=== PATIENT | male | born 1955 | race Caucasian/White ===

== ENCOUNTER → 2021-08-08 14:43 | Outpatient (CLI) | payer OTHER, SELFPAY ==
--- NOTE | ~2021-08-08 | XR_ITS ---
XR lumbar spine 2-3V DATE: 08/08/2021 15:33 INDICATION: Low back pain TECHNIQUE: AP, lateral, coned lateral lumbosacral views COMPARISON: 01/21/2016 lumbar spine FINDINGS: There is moderate degenerative disease throughout the lumbar and lumbosacral spine. No frac ture or bone destruction or spondylolisthesis. The included lower thoracic and lumbar pedicles are in tact. The sacroiliac joints are intact. IMPRESSION: Multilevel moderate degenerative disc disease Reviewed, dictated and finalized at location A. F OCCUPATIONAL THERAPIST
--- NOTE | ~2021-08-08 | XR_ITS ---
XR hip RT min 2V DATE: 08/08/2021 15:20 INDICATION: Right hip pain TECHNIQUE: AP and lateral views COMPARISON: None FINDINGS: There is severe right hip joint space narrowing and prominent spurring, consistent with sev ere right hip osteoarthritis. No fracture or dislocation, avascular necrosis or bone destruction is detected. Normal alignment at the pubic symphysis and right sacroiliac joint. IMPRESSION: Severe right hip osteoarthritis Reviewed, dictated and finalized at location A. ERMAN
== END ==
PROVIDERS: Visit Provider Nurse Practitioner Family
DX: M51.36 Other intervertebral disc degeneration, lumbar region (principal); M16.11 Unilateral primary osteoarthritis, right hip
CPT/HCPCS: 72100; 73502

== ENCOUNTER → 2021-10-03 06:55 | Outpatient (CLI) | payer OTHER, SELFPAY ==
--- NOTE | ~2021-10-03 | MR_ITS ---
EXAMINATION: MR lumbar spine wo con DATE: 10/03/2021 07:36 INDICATION: Severe low back pain TECHNIQUE: Magnetic resonance imaging (MRI) of the lumbar spine was performed without intravenous con trast. Sequences included sagittal T2-weighted FSE, sagittal T2-weighted FS FSE, sagittal T1-weighted FSE, and axial T2-weighted FSE. COMPARISON: Lumbar spine radiographs dated 08/08/2021 FINDINGS: Alignment is normal. Vertebral body heights are normal. Small Schmorl's node along the superior endpl ate of L1 along the inferior endplates of T10 and T11. Normal marrow signal. Mild disc height loss a t T10-T11 through T12-L1 and at L3-L4 through L5-S1. There are annular fissures posteriorly at L5-S1 and anteriorly at L2-L3 through L4-L5. The conus medullaris terminates at L1-L2. There is normal sign al in the caudal spinal cord. Paravertebral soft tissues are unremarkable. The following disc levels are specifically discussed: T12-L1: Disc is bulging. There is minimal bilateral facet joint osteoarthritis. There is no neural fo raminal stenosis. There is mild central canal stenosis. L1-L2: Disc is bulging. There is mild right and mild to moderate left facet joint osteoarthritis. The re is no neural foraminal stenosis. There is mild central canal stenosis. L2-L3: Disc is bulging. There is hypertrophy of the ligamentum flavum. There is moderate right and mi ld left facet joint osteoarthritis. There is mild bilateral neural foraminal stenosis. There is mild central canal stenosis. L3-L4: Disc is bulging. There is moderate bilateral facet joint osteoarthritis. There is mild bilater al neural foraminal stenosis. There is mild central canal stenosis. L4-L5: Disc is bulging. There is hypertrophy of the ligamentum flavum. There is moderate bilateral fa cet joint osteoarthritis. There is moderate bilateral neural foraminal stenosis. There is mild centra l canal stenosis. L5-S1: Disc is bulging. There is moderate left and severe right facet joint osteoarthritis. There is moderate bilateral neural foraminal stenosis. There is no central canal stenosis. IMPRESSION: 1. Mild to moderate lumbar spondylosis. Reviewed, dictated and finalized at location B.
== END ==
PROVIDERS: PCP Orthopaedic Surgery; Visit Provider Orthopaedic Surgery
DX: M47.896 Other spondylosis, lumbar region (principal)
CPT/HCPCS: 72148

== ENCOUNTER 2022-11-05 17:50 | Emergency (ER) | payer MEDICARE, SELFPAY ==
--- NOTE | 2022-11-05 18:17 | ED.WOUNDLAC ---
HPI - Wound/Laceration General Chief Complaint: Wound/Laceration Stated Complaint: laceration Time Seen by Provider: 11/05/22 18:19 Source: patient Mode of arrival: ambulatory Limitations: no limitations History of Present Illness HPI narrative: 67-year-old male presented for complaint of 2 lacerations to the left hand after injury about 4 hours prior to arrival. He states he reached to grab a cathleen tape measure and the edges cut his hand. Reports laceration to left little finger and thumb. Bleeding has stopped. Unsure of last tetanus. Patient voices concern about infection to the sites, as he has hx right hip replacement and does not want any infection. patient cleansed wounds with hydrogen peroxide and applied neosporin with a bandaid. Denies numbness, tingling, weakness or decreased range of motion to the hand or fingers. Related Data Home Medications Medication Instructions Recorded Confirmed celecoxib 200 mg capsule mg 11/05/22 ergocalciferol (vitamin D2) 1,250 11/05/22 mcg (50,000 unit) capsule (Vitamin D2) Allergies Allergy/AdvReac Type Severity Reaction Status Date / Time No Known Allergies Allergy Mild Verified 11/05/22 17:55 Review of Systems Review of Systems: CONSTITUTIONAL: Denies body aches, fever, chills, or sweats. EYES: Denies visual changes, redness, or discharge. ENT: Denies rhinorrhea, congestion CARDIOVASCULAR: Denies chest pain, palpitations, or edema. RESPIRATORY: Denies cough or dyspnea. GASTROINTESTINAL: Denies abdominal pain, nausea, vomiting, or diarrhea. SKIN: per hPI MUSCULOSKELETAL: Denies back pain, joint pain, or myalgia. NEUROLOGIC: Denies headache, numbness, tingling, or weakness. [facility] Past Medical History Medical History (Updated 11/05/22 @ 18:32 by Janny Coyle APRN) Arthritis Surgical History Surgical History (Updated 11/05/22 @ 18:32 by Janny Coyle APRN) History of total hip replacement Social History Social History (Updated 11/05/22 @ 18:32 by Janny Coyle APRN) Smoking status: Former smoker Comments At time of signature, I have reviewed and agree with nursing past medical, surgical, social and family history unless otherwise noted. Please see nursing chart for further information. There is no relevant family history pertinent to the presenting complaint Exam Narrative: GENERAL: Well-appearing HEAD: Normocephalic, atraumatic. EYES: conjunctivae clear, and EOMI. ENT: Mucous membranes moist. Oropharynx without edema, erythema or lesions. NECK: Supple. No lymphadenopathy CHEST: Clear to auscultation. HEART: Regular rate and rhythm. SKIN: Warm, dry. 1 cm linear laceration to the left 5th digit proximal phalanx, no active bleeding; 1.5 cm linear laceration to left thumb web space, no drainage site is dry. No surrounding erythema or signs of infection. NEURO: Alert and oriented x3. Course Course Emergency Course: Patient is aware of diagnosis, understands and agrees to treatment plan. Anticipatory guidance given. Patient agrees to follow-up as directed and is aware of reasons to seek care at the emergency department. Portions of this record may have been created with voice recognition software Level of Care: Express Care Visit Vital Signs Vital signs: Vital Signs Temperature 98.2 F 11/05/22 18:18 Pulse Rate 68 11/05/22 18:18 Respiratory Rate 14 11/05/22 18:18 Blood Pressure 142/80 H 11/05/22 18:18 Pulse Oximetry 97 11/05/22 18:18 Oxygen Delivery Room Air 11/05/22 18:18 Temperature 98.2 F 11/05/22 18:30 Pulse Rate 68 11/05/22 18:30 Respiratory Rate 14 11/05/22 18:30 Blood Pressure 142/80 H 11/05/22 18:30 Pulse Oximetry 97 11/05/22 18:30 Oxygen Delivery Room Air 11/05/22 18:30 Reviewed Procedures Laceration left 5th digit: Date: 11/05/22 Size (cm): 1 Description: linear and clean Depth: simple, single layer Pre-repair
[2022-11-05 18:18] VITALS: BP 142/80; PULSE 68; RESP 14; TEMP 36.8; O2SAT 97
[2022-11-05 18:30] VITALS: BP 142/80; PULSE 68; RESP 14; TEMP 36.8; O2SAT 97
[2022-11-05] MEDS: TETANUS,DIPHTHERIA,AC PERTUSSIS ADULT (0.5 ML) BOOSTRIX IM (18:34)
== END 2022-11-05 18:47 | disposition home or self-care (01) ==
PROVIDERS: Emergency Provider Nurse Practitioner Family; PCP Nurse Practitioner Family
DX: S61.217A Laceration without foreign body of left little finger without damage to nail, initial encounter (principal); S61.012A Laceration without foreign body of left thumb without damage to nail, initial encounter; W45.8XXA Other foreign body or object entering through skin, initial encounter; Z23 Encounter for immunization; M19.90 Unspecified osteoarthritis, unspecified site; Z96.641 Presence of right artificial hip joint
CPT/HCPCS: 12001; 90471; 90715; 99213; G0463

== ENCOUNTER 2022-12-30 18:49 | Emergency (ER) | payer MEDICARE, SELFPAY ==
[2022-12-30 18:51] VITALS: BP 147/109; PULSE 73; RESP 20; TEMP 36.4; O2SAT 99
--- NOTE | 2022-12-30 19:00 | PC.NURSE ---
Assumed care of pt. at this time. Report from EFREN Rios
[2022-12-30 19:16] VITALS: PULSE 64
[2022-12-30 19:35] LABS: Basophils Absolute Auto 0.1 K/mm3 (0.0-0.1); Basophils Percent Auto 0.5 % (0.2-1.2); Eosinophils Absolute Auto 0.1 K/mm3 (0-0.3); Hematocrit 38.8 % (42.0-52.0); Hemoglobin 13.4 g/dL (14.0-18.0); Immature Granulocyte Absolute 0.06 K/mm3 (0.00-0.031); Immature Granulocyte Percent A 0.5 % (0-0.5); Lymphocytes Percent Auto 8.5 % (18.3-44.2); Mean Corpuscular HGB Conc 34.5 g/dl (32-36); Mean Corpuscular Hemoglobin 30.6 pg (26-34); Mean Corpuscular Volume 88.6 fl (80-100); Monocytes Absolute Auto 0.6 K/mm3 (0.1-0.6); Monocytes Percent Auto 4.9 % (2.6-8.5); Neutrophils Absolute Auto 9.9 K/mm3 (1.3-6.7); Neutrophils Percent Auto 84.6 % (45.5-73.1); Platelet Count Result 310 k/mm3 (150-375); Red Blood Count 4.38 M/mm3 (4.6-6.20); Red Cell Distribution Width 13.3 % (11.5-14.5); White Blood Count 11.7 K/mm3 (4.5-10.0)
--- NOTE | 2022-12-30 19:37 | ED.GENADULT ---
HPI - General Adult General Chief complaint: Unspecified Stated complaint: dehydrated Time Seen by Provider: 12/30/22 19:10 Source: patient Mode of arrival: wheelchair Limitations: no limitations History of Present Illness HPI narrative: This is a 67-year-old male that presents to the emergency department for dehydration. 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 He does not feel like he was able to adequately hydrate. Reports dry mouth and decreased urine output. Also reports myalgias. Denies fevers or vomiting. Related Data Home Medications Medication Instructions Recorded Confirmed celecoxib 200 mg capsule mg 11/05/22 ergocalciferol (vitamin D2) 1,250 11/05/22 mcg (50,000 unit) capsule (Vitamin D2) Allergies Allergy/AdvReac Type Severity Reaction Status Date / Time No Known Allergies Allergy Mild Verified 12/30/22 18:55 Review of Systems Review of Systems: CONSTITUTIONAL: Denies fever GASTROINTESTINAL: Denies abdominal pain, nausea, vomiting MUSCULOSKELETAL: Reports myalgia. All systems reviewed & are unremarkable except as noted in HPI and below PMFSH Past Medical History Medical History (Updated 12/30/22 @ 22:17 by Steffi oRwe PA-C) Arthritis Surgical History Surgical History (Updated 11/05/22 @ 18:32 by Janny Coyle APRN) History of total hip replacement Social History Social History (Updated 11/05/22 @ 18:32 by Janny Coyle APRN) Smoking status: Former smoker Exam Narrative: GENERAL: Well-appearing, well-nourished, and in no acute distress. HEAD: Normocephalic, atraumatic. EYES: EOMI. ENT: Mucous membranes moist. Oropharynx without tonsillar hypertrophy exudate or other lesions. CHEST: Clear to auscultation. No respiratory distress. No wheezes rales or rhonchi HEART: Regular rate and rhythm. No murmur heard. Normal peripheral pulses. EXTREMITIES: Normal range of motion. No edema. SKIN: Warm, dry, no rash. NEURO: No focal deficits. Alert and oriented x3. PSYCH: Normal mood and affect Course Course Emergency Course: Patient and family updated on work-up. Reports feeling much better after hydration Vital Signs Vital signs: Vital Signs Temperature 97.5 F L 12/30/22 18:51 Pulse Rate 73 12/30/22 18:51 Respiratory Rate 20 12/30/22 18:51 Blood Pressure 147/109 H 12/30/22 18:51 Pulse Oximetry 99 12/30/22 18:51 Oxygen Delivery Room Air 12/30/22 18:51 Temperature 97.5 F L 12/30/22 18:51 Pulse Rate 66 12/30/22 20:00 Respiratory Rate 14 12/30/22 20:00 Blood Pressure 136/74 12/30/22 20:00 Pulse Oximetry 100 12/30/22 20:00 Oxygen Delivery Room Air 12/30/22 18:51 Medical Decision Making MDM Narrative Medical decision making narrative: Patient presents emergency department for possible dehydration. Reports working outside today. He did not think that he had adequately hydrated. Reports history of similar occurrences in the past. He is afebrile and nontoxic-appearing. His vitals are stable. CBC with mild leukocytosis to 11.7. CBC shows normocytic anemia with hemoglobin of 13.4. Metabolic panel with mild elevation in creatinine to 1.4 and CK of 370. UA with evidence of dehydration. Also shows 11-20 white blood cells. Patient denies any urinary symptoms at this time. This will be sent for culture. Patient and family updated on work-up. He was hydrated with 2 L of IV fluids in the ED. Reports relief of his symptoms. He is stable and felt appropriate for further outpatient evaluation. He was given warnings to return to the ER Differential Diagnosis Differential Diagnosis: Dehydration, electrolyte derangement, rhabdomyolysis Vital Signs Vital Signs: Vital Signs Temperature 97.5 F L 12/30/22 18:51 Pulse Rate 73 12/30/22 18:51 Respiratory Rate 20 12/30/22 18:51 Blood Pressure 147/109 H 12/30/22 18:51 Pulse Oximetry 99 12/30/22 18:51 Oxygen Delivery Room
[2022-12-30 19:46] VITALS: BP 116/69; PULSE 62; RESP 16; O2SAT 97
[2022-12-30] MEDS: SODIUM CHLORIDE 0.9% IV 1,000 ML 999 ML IV CONT ×2 (19:46→20:30)
[2022-12-30 19:51] LABS: Alanine Aminotransferase 31 U/L (6-50); Alkaline Phosphatase 68 U/L (38-126); Anion Gap 14 mmol/L (8-16); Aspartate Amino Transferase 65 U/L (17-59); Bilirubin,Total 0.8 mg/dL (0.2-1.3); Blood Urea Nitrogen 23 mg/dL (9-20); Calcium 9.6 mg/dL (8.4-10.2); Carbon Dioxide 20 mmol/L (22-30); Chloride 105 mmol/L (98-107); Creatine Kinase 370 U/L (55-170); Estimated CRCL calculation 44 ml/min; Estimated Glomerular Filt Rate 51; Glucose 121 mg/dL (65-110); Magnesium 2.1 mg/dL (1.6-2.3); Potassium 3.6 mmol/L (3.4-5.0); Sodium 139 mmol/L (137-145)
[2022-12-30 20:00] VITALS: BP 136/74; PULSE 66; RESP 14; O2SAT 100
[2022-12-30 20:20] LABS: Appearance Urine Cloudy (Clear); Bacteria Urine None Seen /hpf; Bilirubin Urine Negative (Negative); Blood Urine Negative (Negative); Color Urine Dark Yellow (Yellow); Glucose Urine UA Negative (Negative); Hyaline Casts Urine Present /lpf; Ketones Urine Trace mg/dL (Negative); Leukocyte Esterase Ur 1+ LEU/UL (Negative); Mucus Urine Present /lpf; Nitrate Urine Negative (Negative); Non Pathogenic Casts >20; Protein Urine 1+ mg/dL (Negative); Specific Grav Ur 1.023 (1.001-1.035); Squamous Epithelial Cell Urine Occasional /hpf (Few); pH Urine 5.5 (5.0-9.0)
[2022-12-30 20:49] LABS: Add Urine Microscopic? YES
[2022-12-30 22:39] VITALS: BP 141/79; PULSE 69; RESP 16; O2SAT 97
== END 2022-12-30 22:40 | disposition home or self-care (01) ==
PROVIDERS: Emergency Provider Physician Assistant; PCP Nurse Practitioner Family
DX: E86.0 Dehydration (principal); M19.90 Unspecified osteoarthritis, unspecified site; R82.998 Other abnormal findings in urine
CPT/HCPCS: 36415; 80053; 81001; 82550; 83735; 85025; 87077; 87086; 87147; 87181; 87186; 96360; 96361; 99283; J7030

== ENCOUNTER 2023-06-06 12:09 | Emergency (ER) | payer MEDICARE, SELFPAY ==
[2023-06-06 12:42] VITALS: BP 119/63; PULSE 67; RESP 16; TEMP 37.3; O2SAT 99
--- NOTE | 2023-06-06 13:46 | ED.URI ---
HPI - URI/Sore Throat General Chief Complaint: Upper Respiratory Infection Stated Complaint: flu like symptoms Time Seen by Provider: 06/06/23 13:47 Source: patient Mode of arrival: ambulatory Limitations: no limitations History of Present Illness HPI Narrative: 68-year-old male presents with complaint of nasal congestion and sore throat for 1 week that have resolved. Reports he now has chest congestion and cough. No chest pain or shortness of breath. Afebrile. Patient not taking any [id number] medications to treat his symptoms. States he has to go back to work in 4 days and wants to feel better prior to that. All systems reviewed and negative except as noted above. Related Data Home Medications Medication Instructions Recorded Confirmed celecoxib 200 mg capsule See Rx Instructions .Route .COMPLEX 11/05/22 06/06/23 ergocalciferol (vitamin D2) 1,250 See Rx Instructions .Route .COMPLEX 11/05/22 06/06/23 mcg (50,000 unit) capsule (Vitamin D2) Allergies Allergy/AdvReac Type Severity Reaction Status Date / Time No Known Allergies Allergy Mild Verified 06/06/23 12:17 Review of Systems Review of Systems: CONSTITUTIONAL: Denies fever, chills, or sweats. EYES: Denies visual changes, redness, or discharge. ENT: Denies rhinorrhea, congestion, sore throat, or otalgia. CARDIOVASCULAR: Denies chest pain, palpitations, or edema. RESPIRATORY: Reports cough. Denies dyspnea. GASTROINTESTINAL: Denies abdominal pain, nausea, vomiting, or diarrhea. GENITOURINARY: Denies dysuria or hematuria. SKIN: Denies rash or itching. MUSCULOSKELETAL: Denies back pain, joint pain, or myalgia. NEUROLOGIC: Denies headache, numbness, or weakness. PSYCHIATRIC: Denies anxiety or depression. All other systems reviewed are negative, except as documented in HPI. [facility] Past Medical History Medical History (Updated 06/06/23 @ 13:54 by Kary Acuna NP) Arthritis Surgical History Surgical History (Updated 11/05/22 @ 18:32 by Janny Miller APRN) History of total hip replacement Social History Social History (Updated 11/05/22 @ 18:32 by Janny Miller APRN) Smoking status: Former smoker Comments At time of signature, agree with nursing past medical, surgical, social and family history. There is no relevant family history pertinent to the presenting complaint. Exam Narrative: GENERAL: This is a well-nourished, well-developed patient, in no apparent distress. HEAD: normocephalic, atraumatic. EYES: PERRL. Sclera clear/white. Vision is grossly intact. EARS: External ears normal, auditory canals clear and without drainage, TMs normal without perforation. Hearing grossly intact. NOSE: External nose normal with no obvious nasal discharge, nares without redness, no rhinorrhea. THROAT: Mucous membranes moist, posterior pharynx clear. NECK: Neck supple, non-tender without lymphadenopathy, masses or thyromegaly. CARDIOVASCULAR: Regular rate and rhythm without murmurs, gallops, or rubs. RESPIRATORY: Clear to auscultation. Breath sounds equal bilaterally. No wheezes, rales, or rhonchi. SKIN: warm, Dry, intact with no suspicious lesions or rash, good texture and turgor. NEURO: awake, alert, and oriented to person, place and time. There were no obvious focal neurologic abnormalities. EXTREMITIES: No joint tenderness, effusion, or edema noted. Course Course Level of Care: Express Care Visit Vital Signs Vital signs: Vital Signs Temperature 37.3 C 06/06/23 12:42 Pulse Rate 67 06/06/23 12:42 Respiratory Rate 16 06/06/23 12:42 Blood Pressure 119/63 06/06/23 12:42 Pulse Oximetry 99 06/06/23 12:42 Oxygen Delivery Room Air 06/06/23 12:42 Temperature 37.3 C 06/06/23 12:42 Pulse Rate 67 06/06/23 12:42 Respiratory Rate 16 06/06/23 12:42 Blood Pressure 119/63 06/06/23 12:42 Pulse Oximetry 99 06/06/23 12:42 Oxygen Delivery Room Air 06/06/23 12:42 reviewed MDM
== END 2023-06-06 13:57 | disposition home or self-care (01) ==
PROVIDERS: Emergency Provider Nurse Practitioner Family; PCP Nurse Practitioner Family
DX: J06.9 Acute upper respiratory infection, unspecified (principal); R05.9 Cough, unspecified; M19.90 Unspecified osteoarthritis, unspecified site; Z87.891 Personal history of nicotine dependence
CPT/HCPCS: 99213; G0463

== ENCOUNTER 2024-04-10 08:21 | Emergency (ER) | payer MEDICARE, SELFPAY ==
--- NOTE | 2024-04-10 08:23 | ED.DENTAL ---
HPI - Dental/Oral General Chief complaint: Dental/Oral Stated complaint: front tooth issue Time Seen by Provider: 04/10/24 08:31 Source: patient, RN notes reviewed and old records reviewed Mode of arrival: ambulatory Limitations: no limitations History of Present Illness HPI Narrative: 69-year-old male presents to the [facility] with dental issues. Patient with a dental infection. Patient with a right hip replacement. Patient is afraid the infection will go to his hip and he will lose his replacement. Requesting an antibiotic. Patient reports that he does have a dental provider Related Data Home Medications Medication Instructions Recorded Confirmed celecoxib 200 mg capsule See Rx Instructions .Route .COMPLEX 11/05/22 04/10/24 ergocalciferol (vitamin D2) 1,250 See Rx Instructions .Route .COMPLEX 11/05/22 04/10/24 mcg (50,000 unit) capsule (Vitamin D2) Allergies Allergy/AdvReac Type Severity Reaction Status Date / Time No Known Allergies Allergy Mild Verified 04/10/24 08:28 Review of Systems Review of Systems: All systems reviewed & are unremarkable except as noted in HPI and below Constitutional: Constitutional: Reports no additional constitutional complaints ENT: Reports as per HPI and Reports dental pain Cardiovascular: Cardiovascular: Reports no additional cardiovascular complaints, Denies chest pain and Denies dyspnea Respiratory: Respiratory: Reports no additional respiratory complaints, Denies chest congestion, Denies cough and Denies dyspnea Gastrointestinal: Gastrointestinal: Reports no additional gastrointestinal complaints, Denies abdominal pain, Denies nausea and Denies vomiting Musculoskeletal: Musculoskeletal: Reports no additional musculoskeletal complaints Integumentary/Breasts: Skin/Breast: Reports system reviewed and no additional complaints, except as docu PMFSH Past Medical History Medical History Arthritis Surgical History Surgical History History of total hip replacement right Social History Social History Smoking status: Former smoker Alcohol intake: current Alcohol use details: rarely Substance use type: does not use Do You Feel Safe in your Home?: Yes Lack of Transportation: No Lack of Food: Never True Current Housing: I Have Housing Concerned About Future Housing: No Difficulty Paying Gas/Electric Bills: No Difficulty Paying for Meds: No Currently Unemployed: No Education: High School Diploma/GED Difficulty w/ Childcare or Family Care: No Living arrangements: with family Occupation/Education: occupation Additional occupation/education comments: chemical plant Comments At the time of my signature, I reviewed and agree with the nursing past medical, surgical, social, and family history. There is no relevant family history pertinent to the patient complaint. Exam Const: General: cooperative, healthy appearing, comfortable, no acute distress, well developed, alert and well nourished Nutritional Appearance: well nourished Orientation/consciousness: patient oriented x3 Limitations: no limitations HENMT: Head: normal to inspection Ears: hearing grossly normal bilaterally and external ears normal Face/Nose/Sinus: Normal external nose present, normal facial exam and face symmetric Face and sinus: normal facial exam and face symmetric Mouth: Yes Normal oral and palatal mucosa present, Yes lip normal and Yes tongue normal Teeth and gingiva: caries, fair dentition and gingiva abnormal edematous (Anterior gum, 2 front teeth and left to the cuspid) and receding Teeth image: 1. Mild inflammation, increased pink color. No fluctuance. Eyes: General: appearance normal, both eyes and all related structures Alignment and Position: alignment normal Periorbital: periorbital findings normal Neck: Neck: normal visual inspection, full ROM, no lymphadenopathy and no meningeal signs Chest: Chest palpation & inspection: normal inspection of the chest Resp: Effort & Inspection: normal respiratory effort and able to speak in complete sentences Cardio: Rate: regular rate Skin: General skin exam: normal color and no rashes or lesions noted Lesions: no lesions Rashes: no rashes Wounds: no wounds Neuro: General: patient oriented x3, gait normal, tone normal, moves all extremities and no meningeal signs Cognition (Neuro): normal cognition Speech: normal speech Gait exam (Neuro): Normal gait present Extrem: General: normal to inspection, full ROM, capillary refill normal and normal gait Psych: Appearance: grossly normal and well kempt Mental Status: mental status grossly normal Speech and movement: Normal speech and movement present and Clear speech present Affect: normal affect Attitude: cooperative Course Course Level of Care: Express Care Visit Vital Signs Vital signs: Vital Signs Temperature 99.0 F 04/10/24 08:33 Pulse Rate 66 04/10/24 08:33 Respiratory Rate 16 04/10/24 08:33 Blood Pressure 166/106 H 04/10/24 08:33 Pulse Oximetry 99 04/10/24 08:33 Oxygen Delivery Room Air 04/10/24 08:33 Temperature 99.0 F 04/10/24 08:33 Pulse Rate 66 04/10/24 08:33 Respiratory Rate 16 04/10/24 08:33 Blood Pressure 166/106 H 04/10/24 08:33 Pulse Oximetry 99 04/10/24 08:33 Oxygen Delivery Room Air 04/10/24 08:33 Reviewed MDM - Dental/Oral MDM Narrative Medical decision making narrative: Patient sitting comfortably in exam room, nontoxic, vitals are stable except blood pressure mildly elevated. Patient presents with upper to left gum discomfort since Thursday Patient appropriate for outpatient treatment with follow-up Discharge instructions reviewed with patient, as well as provided in writing per nursing staff. The instructions also include specific and strict return/GO TO THE ER as well as f/u information. All questions have been answered, and the patient deny any further questions with discharge and discharge plan. Some parts of this dictation were generated by voice recognition software and may contain typographical and/or grammatical inaccuracies. Differential Diagnosis Differential diagnosis: Likely gingival abscess, dental caries, toothache, dental abscess and fracture of tooth Critical Care Time Critical Care Time Critical Care Time: No Discharge Plan Discharge Clinical Impression: Gingivitis, Dental infection Patient Disposition: Home, Self-Care Condition: Stable Instructions: Antibiotic Form, Toothache (ED), Mouth Care (ED) Additional Instructions: Finish the entire course of antibiotics & use the mouthwash. After every time you eat be sure to use salt water rinses. Apply ice to face to help with pain. Take Tylenol as needed for pain. You need to follow-up with a dental provider as soon as possible for further evaluation and treatment. A list of dental providers has been given to you Follow up with a Primary Care Provider (PCP) about medical needs. A PCP can help keep you healthy by preventive medicine and screening. Today your blood pressure was 166/106. Is important that you follow-up with primary care provider for further evaluation If you are having a hard time finding a physician please call our [facility] group liaison at [phone]. Go to the ER for New or worsening symptoms. Patient Language: Yakut Prescriptions: New penicillin V potassium 500 mg tablet 500 mg PO QID 10 Days Qty: 40 0RF No Action celecoxib 200 mg capsule See Rx Instructions .ROUTE .COMPLEX Rx Instructions: Rx ergocalciferol (vitamin D2) [Vitamin D2] 1,250 mcg (50,000 unit) capsule See Rx Instructions .ROUTE .COMPLEX Rx Instructions: Rx Follow-up/Referrals: PHYSICIAN,ANIMAL BEHAVIORIST [Primary Care Provider] - Stand Alone Forms: Work/School Release IP Time of Disposition: 08:50
[2024-04-10 08:33] VITALS: BP 166/106; PULSE 66; RESP 16; TEMP 37.2; O2SAT 99
== END 2024-04-10 09:03 | disposition home or self-care (01) ==
PROVIDERS: Emergency Provider Nurse Practitioner
DX: K05.10 Chronic gingivitis, plaque induced (principal); K04.7 Periapical abscess without sinus; M19.90 Unspecified osteoarthritis, unspecified site; Z96.641 Presence of right artificial hip joint; Z87.891 Personal history of nicotine dependence
CPT/HCPCS: 99213; G0463

== ENCOUNTER 2024-05-06 09:59 | Emergency (ER) | payer MEDICARE, SELFPAY ==
[2024-05-06 11:04] VITALS: BP 162/97; PULSE 66; RESP 16; TEMP 36.4; O2SAT 98
[2024-05-06 11:08] LABS: EDUAAPPEAR Clear; EDUABILI Negative (Negative); EDUABLOOD Trace (Negative); EDUACOLOR1 Yellow; EDUAGLUCOSE Negative (Negative); EDUAKETONE Negative (Negative); EDUALEUKO Negative (Negative); EDUANITRATE Negative (Negative); EDUAPH 6.5; EDUAPROTEIN Negative (Negative); EDUAUROBILI 0.2
--- NOTE | 2024-05-06 11:27 | ED_ITS ---
HPI - Male Genitourinary General Chief complaint: Urogenital-Male Stated complaint: Urinary Problems Time Seen by Provider: 05/06/24 11:27 Source: patient, RN notes reviewed and old records reviewed Mode of arrival: ambulatory Limitations: no limitations History of Present Illness HPI Narrative: Patient presents with complaints of difficulty passing urine. This has been a repeated problem for him. He denies any injury or trauma. He denies any fever, chills, sweats. Denies any back pain or abdominal pain. He reports that he does have some urinary burning. This particular episode has been lasting 3-4 days. Patient reports that he frequently has this problem. He has not spoken to his primary care provider regarding this. He has not taken any medication for his symptoms. He voices no other concerns or complaints Related Data Home Medications Medication Instructions Recorded Confirmed celecoxib 200 mg capsule See Rx Instructions .Route .COMPLEX 11/05/22 04/10/24 ergocalciferol (vitamin D2) 1,250 See Rx Instructions .Route .COMPLEX 11/05/22 04/10/24 mcg (50,000 unit) capsule (Vitamin D2) Allergies Allergy/AdvReac Type Severity Reaction Status Date / Time No Known Allergies Allergy Mild Verified 05/06/24 10:50 Review of Systems Review of Systems: All systems reviewed & are unremarkable except as noted in HPI and below Constitutional: Constitutional: Reports no additional constitutional complaints ENT: Reports system reviewed and no additional complaints, except as documented Cardiovascular: Cardiovascular: Reports no additional cardiovascular complaints Respiratory: Respiratory: Reports no additional respiratory complaints Gastrointestinal: Gastrointestinal: Reports no additional gastrointestinal complaints Genitourinary: Genitourinary: Reports no additional male genitourinary complaints, Reports as per HPI and Reports dysuria PMFSH Past Medical History Medical History Arthritis Surgical History Surgical History History of total hip replacement right Social History Social History Smoking status: Former smoker Alcohol intake: current Alcohol use details: rarely Substance use type: does not use Do You Feel Safe in your Home?: Yes Lack of Transportation: No Lack of Food: Never True Current Housing: I Have Housing Concerned About Future Housing: No Difficulty Paying Gas/Electric Bills: No Difficulty Paying for Meds: No Currently Unemployed: No Education: High School Diploma/GED Difficulty w/ Childcare or Family Care: No Living arrangements: with family Occupation/Education: occupation Additional occupation/education comments: chemical plant Comments At the time of my signature, I reviewed and agree with the nursing past medical, surgical, social, and family history. There is no relevant family history pertinent to the patient complaint. Exam Const: General: cooperative, no acute distress, alert and awake Orientation/consciousness: oriented to person, oriented to place and oriented to time HENMT: Head: normal to inspection Mouth: Yes moist mucous membranes Resp: Effort & Inspection: normal respiratory effort and able to speak in complete sentences Auscultation: clear to auscultation bilaterally, no crackles, no rales, no rhonchi and no wheezes Cardio: Palpation: normal PMI Rate: regular rate Rhythm: regular rhythm Heart sounds: S1 normal heart sound present and S2 normal heart sound present GI: Inspection: non-distended GI Palp: Yes Soft to palpation and No Tenderness to palpation present (GI) Auscultation: normal bowel sounds : General: No CVA tenderness and Yes no CVA tenderness Neuro: General: oriented to person, oriented to place and oriented to time Cranial nerves: Yes CN's II-XII intact bilaterally Psych: Appearance: grossly normal Thought process: Normal thought process present Insight: Good insight present (Psych) Judgement: Good judgement present (Psych) Course Course Level of Care: Express Care Visit Vital Signs Vital signs: Vital Signs Temperature 97.6 F 05/06/24 11:04 Pulse Rate 66 05/06/24 11:04 Respiratory Rate 16 05/06/24 11:04 Blood Pressure 162/97 H 05/06/24 11:04 Pulse Oximetry 98 05/06/24 11:04 Oxygen Delivery Room Air 05/06/24 11:04 Temperature 97.6 F 05/06/24 11:04 Pulse Rate 66 05/06/24 11:04 Respiratory Rate 16 05/06/24 11:04 Blood Pressure 162/97 H 05/06/24 11:04 Pulse Oximetry 98 05/06/24 11:04 Oxygen Delivery Room Air 05/06/24 11:04 Reviewed MDM - Male Genitourinary MDM Narrative Medical decision making narrative: Her UA with no sign of infection. Lysed blood noted on UA. Discussed with patient that if he is having difficulty urinating he must go to the emergency department. Elevated blood pressure discussed with patient. Follow-up with primary care provider without fail. Emergency department for new or worse symptoms. Discharge instructions reviewed with patient, as well as provided in writing per nursing staff. The instructions also include specific and strict return/GO TO THE ER as well as f/u information. All questions have been answered, and the patient deny any further questions with discharge and discharge plan. Some parts of this dictation were generated by voice recognition software and may contain typographical and/or grammatical inaccuracies. Differential Diagnosis Differential diagnosis: Likely urinary tract infection and prostatitis Medical Records Attestation: I reviewed the patient's medical records. Lab Data Attestation: I reviewed the patient's lab results. Labs: Lab Results 05/06/24 Range/Units 11:05 POC Urine Color Yellow POC Urine Clarity Clear POC Urine pH 6.5 POC Ur Specif [place] 1.020 POC Urine Protein Negative (Negative) POC Ur Glucose (UA) Negative (Negative) POC Urine Ketones Negative (Negative) POC Urine Blood Trace (Negative) POC Urine Nitrite Negative (Negative) POC Urine Bilirubin Negative (Negative) POC Urine Urobilinogen 0.2 POC U Leukocyte Esteras Negative (Negative) Discharge Plan Discharge Clinical Impression: Dysuria, Elevated blood pressure reading Patient Disposition: Home, Self-Care Condition: Stable Instructions: Antibiotic Form, Dysuria (ED) Additional Instructions: Follow-up with primary care provider. Emergency department for new or worse symptoms Patient Language: Georgian Prescriptions: No Action celecoxib 200 mg capsule See Rx Instructions .ROUTE .COMPLEX Rx Instructions: Rx ergocalciferol (vitamin D2) [Vitamin D2] 1,250 mcg (50,000 unit) capsule See Rx Instructions .ROUTE .COMPLEX Rx Instructions: Rx penicillin V potassium 500 mg tablet 500 mg PO QID 10 Days Qty: 40 0RF Follow-up/Referrals: PHYSICIAN,EVP AND CHIEF OPERATING OFFICER [Primary Care Provider] - Time of Disposition: 11:37
[2024-05-06 11:46] LABS: EDUAAPPEAR Clear; EDUABILI Negative (Negative); EDUABLOOD Trace (Negative); EDUACOLOR1 Yellow; EDUAGLUCOSE Negative (Negative); EDUAKETONE Negative (Negative); EDUALEUKO Negative (Negative); EDUANITRATE Negative (Negative); EDUAPH 6.5; EDUAPROTEIN Negative (Negative); EDUAUROBILI 0.2
== END 2024-05-06 11:40 | disposition home or self-care (01) ==
PROVIDERS: Emergency Provider Nurse Practitioner Family
DX: R30.0 Dysuria (principal); R03.0 Elevated blood-pressure reading, without diagnosis of hypertension; M19.90 Unspecified osteoarthritis, unspecified site; Z96.641 Presence of right artificial hip joint; Z87.891 Personal history of nicotine dependence
CPT/HCPCS: 81003; 87086; 99213; G0463

== ENCOUNTER 2024-07-21 10:17 | Outpatient (CLI) | payer MEDICARE, SELFPAY ==
--- NOTE | ~2024-07-21 | XR_ITS ---
Right Shoulder Technique: AP and scapular Y views were obtained. Clinical History: Pain Findings: No fracture or dislocation is seen. Osseous alignment is anatomic. The glenohumeral joint i s intact. There is moderate AC joint degenerative change. Soft tissues are unremarkable. Impression: Moderate AC joint degenerative change. Reviewed, dictated and finalized at [facility]. CTICIDE EXPERT Impression: Moderate AC joint degenerative change.
--- NOTE | ~2024-07-21 | XR_ITS ---
Left Shoulder Technique: AP and axillary views were obtained. Clinical History: Pain Findings: No fracture or dislocation is seen. Osseous alignment is anatomic. The glenohumeral joint i s intact. There is moderate AC joint degenerative change. Soft tissues are unremarkable. Impression: Moderate AC joint degenerative change. Reviewed, dictated and finalized at location . [facility] Impression: Moderate AC joint degenerative change.
--- NOTE | ~2024-07-21 | XR_ITS ---
HISTORY: Chronic back pain. Previous lumbar spine MRI 2021 COMPARISON: 08/08/2021 TECHNIQUE: 4 view lumbar spine. FINDINGS: Lumbar vertebral bodies are normally aligned. There are 5 non-rib bearing lumbar vertebral bodies. Vertebral body heights are well maintained. Significant disc space narrowing prominent at L1/L2 and L5/S1. Significant facet arthropathy is identified demonstrating significant progression since previous exam ination dated 08/08/2021 There are no lytic or sclerotic lesions. Paraspinal soft tissues are unremarkable IMPRESSION: Severe degenerative disease, demonstrating progression from prior examination dated 08/08/2021 MRI examination is recommended for further evaluation and characterization Reviewed, dictated and finalized at location [facility]. UM SYSTEM TESTER IMPRESSION: Severe degenerative disease, demonstrating progression from prior examination d ated 08/08/2021 MRI examination is recommended for further evaluation and characterization
--- NOTE | ~2024-07-21 | XR_ITS ---
Right Hand Technique: PA, oblique, and lateral views were obtained. Clinical History: First MCP joint swelling Findings: No acute fracture or dislocation is seen. Osseous alignment is anatomic. There is moderate degenerative change of the second MCP joint. Soft tissues are unremarkable. Impression: Moderate degenerative change of the second MCP joint. Reviewed, dictated and finalized at [facility]. OPALEONTOLOGIST Impression: Moderate degenerative change of the second MCP joint.
== END 2024-07-21 10:18 | disposition home or self-care (01) ==
PROVIDERS: PCP Family Medicine; Visit Provider Family Medicine
DX: M19.012 Primary osteoarthritis, left shoulder (principal); M19.011 Primary osteoarthritis, right shoulder; M19.041 Primary osteoarthritis, right hand; M51.360 Other intervertebral disc degeneration, lumbar region with discogenic back pain only; G89.29 Other chronic pain
CPT/HCPCS: 72110; 73030; 73130

== ENCOUNTER 2025-03-30 16:04 | Emergency (ER) | payer MEDICARE, SELFPAY ==
[2025-03-30 16:13] VITALS: BP 141/83; PULSE 103; RESP 18; TEMP 36.5; O2SAT 97
--- NOTE | 2025-03-30 16:30 | ED_ITS ---
HPI - Dental/Oral General Chief complaint: Dental/Oral Stated complaint: Dental Pain Time Seen by Provider: 03/30/25 16:30 Source: patient, RN notes reviewed and old records reviewed Mode of arrival: ambulatory Limitations: no limitations History of Present Illness HPI Narrative: 70 year old male presents to express care with complaints of dental pain with redness and swelling around left side lower front tooth which started this morning. Patient reports that he is concerned about infection because he has had a total hip replacement.Patient has not taken any OTC medication for his discomfort can only take Tylenol patient reports. Patient reports no fevers or any facial swelling noted, has poor dentition. Is in between dentist but plans to call family members dentist. MD Complaint: tooth pain Location: Tooth # (#22) Onset (ago): day(s) (started this morning) Duration: constant Severity scale (1-10): 4 Exacerbating factors: chewing Treatment prior to arrival: none Related Data Allergies Allergy/AdvReac Type Severity Reaction Status Date / Time No Known Allergies Allergy Mild Verified 03/30/25 16:06 Review of Systems Review of Systems: CONSTITUTIONAL: Denies fever, chills, or sweats. ENT: Denies rhinorrhea, congestion, sore throat, or otalgia. Reports dental pain to #22 CARDIOVASCULAR: Denies chest pain, palpitations, or edema. RESPIRATORY: Denies cough or dyspnea. SKIN: Denies rash or itching. MUSCULOSKELETAL: Denies myalgia. NEUROLOGIC: Denies headache All systems reviewed & are unremarkable except as noted in HPI and below PMFSH Past Medical History Medical History History of dental problems Mixed hyperlipidemia Hearing loss Arthritis Surgical History Surgical History History of total hip replacement right Social History Social History Smoking status: Former smoker Alcohol intake: current Alcohol use details: rarely Substance use type: does not use Do You Feel Safe in your Home?: Yes Lack of Transportation: No Lack of Food: Never True Current Housing: I Have Housing Concerned About Future Housing: No Difficulty Paying Gas/Electric Bills: No Difficulty Paying for Meds: No Currently Unemployed: No Education: High School Diploma/GED Difficulty w/ Childcare or Family Care: No Living arrangements: with family Occupation/Education: occupation 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 There is no relevant family history pertinent to the presenting complaint Exam Narrative: GENERAL: Well-appearing, well-nourished, and in no acute distress. HEAD: Normocephalic, atraumatic. EYES: PERRLA and EOMI. ENT: Nares clear, no rhinorrhea or epistaxis. Mucous membranes moist. Missing teeth, broken teeth, caries with pain and gum swelling around#22 tooth no facial swelling no trismus noted or any Nish angina NECK: Supple. no lymphadenopathy CHEST: Clear to auscultation. No respiratory distress. SAO2 97% on room air HEART: Regular rate and rhythm. No murmur heard. Normal peripheral pulses. SKIN: Warm, dry, no rash. NEURO: No focal deficits. Alert and oriented x3. Course Course Emergency Course: Patient is aware of diagnosis, understands and agrees to treatment plan. Anticipatory guidance given. Patient agrees to follow-up as directed and is aware of reasons to seek care at the emergency department. Portions of this record may have been created with voice recognition software Level of Care: Express Care Visit Vital Signs Vital signs: Vital Signs Temperature 36.5 C 03/30/25 16:13 Pulse Rate 103 H 03/30/25 16:13 Respiratory Rate 18 03/30/25 16:13 Blood Pressure 141/83 H 03/30/25 16:13 Pulse Oximetry 97 03/30/25 16:13 Oxygen Delivery Room Air 03/30/25 16:13 Temperature 36.5 C 03/30/25 16:13 Pulse Rate 103 H 03/30/25 16:13 Respiratory Rate 18 03/30/25 16:13 Blood Pressure 141/83 H 03/30/25 16:13 Pulse Oximetry 97 03/30/25 16:13 Oxygen Delivery Room Air 03/30/25 16:13 Reviewed MDM - Dental/Oral MDM Narrative Medical decision making narrative: Patients pain and complaint coupled with physical findings are consistent with dentalgia. There are no focal signs of space occupying lesions that are compromising to the airway; no dysphagia, odynophagia, dysphonia, or dyspnea. No uvular deviation or soft palate edema. Patient is non-toxic appearing. The floor of the mouth is soft with no signs of Nish's Angina; no induration below mandible, no neck pain.? Patient is without trismus or drooling and able to swallow secretions.? Patient is felt appropriate for discharge home with dental follow up. Differential Diagnosis Differential diagnosis: Likely dental caries, toothache, dental abscess and other (dentalgia) Medical Records Attestation: I reviewed the patient's medical records. Critical Care Time Critical Care Time Critical Care Time: No Discharge Plan Discharge Clinical Impression: Dental abscess, Pain, dental Patient Disposition: Home Condition: Stable Instructions: Antibiotic Form, Dental Abscess (ED), Toothache (ED) Additional Instructions: Avoid temperature extremes May apply heat or ice to the face Gentle brushing and flossing Antibiotic as directed Tylenol for lesser pain Viscous lidocaine use Q-tips may apply around affected tooth and gumfor pain con trol Follow-up with the dentist as soon as possible--see the list provided If your symptoms persist, change or worsen significantly before you can contact your personal physician then please, without delay, go to the emergency department for further evaluation. Follow-up with PCP in 7-10 days or sooner if needed Follow up with PCP soon in regards to your blood pressure which is elevated above threshold for referral. Blood pressure above 120/80 may indicate pre- hypertension. 141/83 Patient Language: Belarusian Prescriptions: New amoxicillin 500 mg capsule 500 mg PO Q8H Qty: 30 0RF Rx Instructions: Take all doses of oral antibiotics lidocaine HCl [Lidocaine Viscous] 2 % solution 1 applic mucous membrane QID PRN (Reason: pain) Qty: 100 0RF Rx Instructions: Use Q-tip and apply around tooth and gum that is affected to 4 times daily for pain control No Action atorvastatin [Lipitor] 20 mg tablet 20 mg PO QHS Qty: 90 0RF Follow-up/Referrals: Radha Beach DO [Primary Care Provider, Family Practice] Stand Alone Forms: Work/School Release IP Time of Disposition: 16:[address] [place] Coma Scale Eyes: Open Verbal: Oriented and Alert Motor: Follows Commands Danielle Coma Total Score: 15
== END 2025-03-30 16:45 | disposition home or self-care (01) ==
PROVIDERS: Emergency Provider Registered Nurse; PCP Family Medicine
DX: K04.7 Periapical abscess without sinus (principal); Z87.891 Personal history of nicotine dependence; E78.2 Mixed hyperlipidemia; M19.90 Unspecified osteoarthritis, unspecified site
CPT/HCPCS: 99213; G0463